=== PATIENT | female | born 1975 | race Caucasian/White ===

== ENCOUNTER 2017-04-03 06:55 | Day surgery (SDC) | payer OTHER ==
[~2017-04-03] VITALS: Ht 163.8 cm; Wt 65.8 kg
[~2017-04-03 06:55] MED LIST: ASCORBIC ACID500 M3 PO; BIOTIN800 MCG PO; DAILY MULTIPLE1 EACH PO; LEVOTHYROXINE25 MCG PO; METOPROLOL SUCC25 MG PO; PROBIOTIC1 EAC2 PO; VITAMIN D2000 UNIT PO
[2017-04-03 07:44] VITALS: BP 117/69
[2017-04-03 11:00] VITALS: BP 123/78
[2017-04-03 12:29] VITALS: BP 126/71
== END 2017-04-03 12:25 | disposition home or self-care (01) ==
LOC: SDC 06:55
PROVIDERS: Obstetrics & Gynecology Gynecology
PROC: 0HQ9XZZ Repair Perineum Skin, External Approach (ICD-10-PCS; principal; 2017-04-03)
PROC: 0UBM0ZZ Excision of Vulva, Open Approach (ICD-10-PCS; principal; 2017-04-03)
DX: I86.3 Vulval varices (principal); L73.2 Hidradenitis suppurativa; I10 Essential (primary) hypertension; E03.9 Hypothyroidism, unspecified; I49.9 Cardiac arrhythmia, unspecified; Z87.891 Personal history of nicotine dependence
CPT/HCPCS: 81025; 88305; J0690; J1100; J2250; J2405; J3010

== ENCOUNTER 2017-05-16 09:13 | Day surgery (SDC) | payer OTHER ==
[~2017-05-16] VITALS: Ht 162.6 cm; Wt 64.8 kg
[~2017-05-16 09:13] MED LIST changes: +VISINE DRY EYE15 ML BOTH EYES; +[UNRECOGNIZED DRUG - OTHER] PO
[2017-05-16 09:56] VITALS: BP 111/64
[2017-05-16 10:11] VITALS: BP 111/64
[2017-05-16 14:26] VITALS: BP 106/69
[2017-05-16 20:22] VITALS: BP 97/54
[2017-05-17 00:33] VITALS: BP 90/52
[2017-05-17 03:40] VITALS: BP 105/55
[2017-05-17 07:42] LABS: HEMATOCRIT 38.5 % (36.0-46.0); HEMOGLOBIN 12.5 G/DL (11.9-15.5); MCH 31.6 PG (29.0-34.0); MCHC 32.5 G/DL (30.0-36.0); MCV 97.2 FL (83-99); PLATELET COUNT 195 K/uL (156-360); RBC DIS.WIDTH-CV 12.1 % (11.8-14.6); RBC DIS.WIDTH-SD 43.6 % (39-53); RED BLOOD COUNT 3.96 M/uL (3.80-5.20); WHITE BLOOD COUNT 13.8 K/uL (4.1-10.2)
[2017-05-17 08:00] VITALS: BP 105/57
[2017-05-17 08:10] LABS: CHLORIDE 108 MEQ/L (99-109); CREATININE 0.8 MG/DL (0.6-1.3); GFR ESTIMATE (CALCULATED) > 59 mL/min/; GLUCOSE 93 mg/dL (70-99); POTASSIUM 4.2 MEQ/L (3.7-5.4); SODIUM 142 MEQ/L (136-147); UREA NITROGEN (BUN) 10 mg/dL (9-23)
[2017-05-17] MEDS ORDERED: TORADOL10 MG PO (08:43)
== END 2017-05-17 09:08 | disposition home or self-care (01) ==
LOC: SDC 09:13 → 2SOUTH 12:02 → ENRESERV 12:03 → 2EASTP 14:25 → SDC 16:02 → ENPENDDIS 05-17 → 2EASTP 05-17 09:08
PROVIDERS: Obstetrics & Gynecology Gynecologic Oncology
DX: D39.8 Neoplasm of uncertain behavior of other specified female genital organs (principal)
CPT/HCPCS: 80048; 85027; 86850; 86900; 86901; 88305; 88307; G0378; J0690; J1100; J1170; J1885; J2250; J2405; J2765; J3010; J7120; Q0175; S0020